=== PATIENT | female | born 1965 ===

== ENCOUNTER 2022-03-27 06:52 | Day surgery (SDC) | payer OTHER ==
[~2022-03-27] VITALS: Ht 162.6 cm; Wt 49.9 kg
[~2022-03-27 06:52] MED LIST: D3 + K2 DOTS 11 EACH PO
[2022-03-27] MEDS ORDERED: ULTRAM50 MG PO (11:13)
[2022-03-27] MEDS ORDERED: MIRALAX17 GM PO (11:13)
[2022-03-27] MEDS ORDERED: KETO10TA2 PO (11:13)
[2022-03-27] MEDS ORDERED: TYLENOL ARTHRI650 MG PO (11:13)
== END 2022-03-27 16:20 | disposition home or self-care (01) ==
LOC: CIR.AMB 06:52
PROVIDERS: ATTEND Surgery
DX: K41.30 Unilateral femoral hernia, with obstruction, without gangrene, not specified as recurrent (principal); K40.90 Unilateral inguinal hernia, without obstruction or gangrene, not specified as recurrent; Z20.822 Contact with and (suspected) exposure to COVID-19